=== PATIENT | male | born 1990 | race Caucasian/White ===

== ENCOUNTER 2022-09-27 20:22 | Emergency (ER) | payer SELFPAY ==
[~2022-09-27] VITALS: Ht 182.9 cm; Wt 95.3 kg
[2022-09-27] MEDS ORDERED: AMOX500C2 PO (21:10)
[2022-09-27] MEDS ORDERED: AMOXICILLIN 500 MG (POLYMOX) CAP PO STA (21:11)
--- NOTE | 2022-09-27 21:11 | ED EENT ---
History of Present Illness General Chief Complaint: Ear Problems Stated Complaint: EARACHE Source: patient Exam Limitations: no limitations History of Present Illness Date Seen by Provider: Sep 27, 2022 Time Seen by Provider: 21:00 Initial Comments 31-year-old male presents for 4 days of left ear pain. Symptoms started as a dull ache and have progressed to worsening. No drainage. No fevers or chills. No known trauma. He has been using hydroperoxide washes. All other systems reviewed and negative except documented per HPI. Voice recognition software was used to help create this chart Allergies and Home Medications Patient Home Medication List Home Medication List Reviewed: Yes Review of Systems Review of Systems Constitutional: see HPI Past Sqcgzki-Asxrmv-Wlkazj Hx Patient Social History Tobacco Use?: Yes Tobacco type used: Cigarettes Smoking Status: Current Everyday Smoker Substance use?: Yes Substance type: Marijuana Substance frequency: Once in a while Alcohol Use?: Yes Alcohol Frequency: Several times a month Pt feels they are or have been: No Immunizations Up To Date Influenza Vaccine Up-to-Date: No; Not Current First/Initial COVID19 Vaccinat: N/A Physical Exam Height, Weight, BMI Height: '" Weight: lbs. oz. kg; BMI Method: General Appearance: WD/WN, no apparent distress Eyes: bilateral eye normal inspection, bilateral eye PERRL, bilateral eye EOMI Ears: right ear auricle normal, right ear canal normal, right ear TM normal; left ear TM red, left ear other (There is no perforation but there is a superficial scratch in the anterior inferior portion of the left TM. There is erythema in this area.) Nose: normal inspection Mouth/Throat: normal mouth inspection, pharynx normal Neck: non-tender, supple, normal inspection Cardiovascular: regular rate, rhythm Respiratory: chest non-tender, lungs clear, normal breath sounds Skin: normal color, warm/dry Departure Communication (Admissions) Patient is hemodynamically stable. He has an abrasion to the left TM. It is overall intact. It does appear there is some focal inflammation, infection around the abrasion. We will go ahead and give him antibiotics. Recommend anti-inflammatories and dwqc-[id number]-rwhufqi earache drops. Discharged in stable condition. Impression Primary Impression: Otalgia of left ear Disposition: HOME, SELF-CARE Condition: Stable Departure-Patient Inst. Referrals: NO,LOCAL PHYSICIAN (PCP/Family) Primary Care Physician Patient Instructions: Ear Infections (Otitis Media) in Adults (DC) Add. Discharge Instructions: Take the antibiotics as prescribed. Use anti-inflammatory medicine such as Motrin or Aleve as needed for pain. You may also use rrym-vws-twxuwsa earache drops. Return to the emergency department for any severe concerns. All discharge instructions reviewed with patient and/or family. Voiced understanding. Scripts Amoxicillin (Amoxicillin) 500 Mg Capsule 500 MG PO BID for 7 Days, #14 CAP Prov: JOSE C LOVING DO 09/27/22 JOSE C LOVING DO Sep 27, 2022 21:11
[2022-09-27 21:32] VITALS: BP 151/99
== END 2022-09-27 21:32 | disposition home or self-care (01) ==
LOC: ER 20:28
DX: H73.22 Unspecified myringitis, left ear (principal); F17.210 Nicotine dependence, cigarettes, uncomplicated; Z28.310 Unvaccinated for COVID-19
CPT/HCPCS: 99283